=== PATIENT | male | born 1990 | race Caucasian/White ===

== ENCOUNTER 2017-10-20 23:34 | Emergency (ER) | payer SELFPAY ==
[~2017-10-20] VITALS: Ht 172.7 cm; Wt 72.6 kg
--- NOTE | 2017-10-21 00:10 | NUR ---
PT IN ROOM ALERT AWAKE C/O FEELING NAUSEAUS WITH 1 EPISODE OF VOMITTING GREENISH COLOR. FATHER AT BEDSIDE. AWAITING MD ORDERS AT THIS TIME.
--- NOTE | 2017-10-21 01:00 | NUR ---
PT SEEN AND EVALUATED BY MD AT THIS TIME. AWAITING ORDERS.
[2017-10-21] MEDS ORDERED: ONDANSETRON 4 MG/2 ML VIAL IV ONE (01:15)
[2017-10-21] MEDS ORDERED: HYDROMORPHONE 1 MG/1 ML DISP.SYRIN IV ONE (01:15)
[2017-10-21] MEDS ORDERED: IV NORMAL SALINE 1000 ML BAG IV ONE ×2 (01:15→03:00)
[2017-10-21] MEDS ORDERED: ONDANSETRON 4 MG/2 ML VIAL ONE (01:23)
[2017-10-21] MEDS ORDERED: HYDROMORPHONE 1 MG/1 ML DISP.SYRIN ONE (01:24)
[2017-10-21 01:26] LABS: BASOPHILS % (AUTO) 0.3 % (0.0-2.0); EOSINOPHILS % (AUTO) 0.1 % (0.0-7.0); HEMATOCRIT 37.8 % (36.7-47.1); HEMOGLOBIN 12.9 g/dL (12.5-16.3); LYMPHOCYTES # (AUTO) 2.6 K/uL (20.0-40.0); LYMPHOCYTES % (AUTO) 16.9 % (20.5-51.5); MEAN CORPUSCULAR HEMOGLOBIN 31.7 uug (23.8-33.4); MEAN CORPUSCULAR HGB CONC 34 g/dL (32.5-36.3); MONOCYTES % (AUTO) 6.8 % (0.0-11.0); NEUTROPHILS # (AUTO) 11.7 K/uL (1.8-8.9); NEUTROPHILS % (AUTO) 75.9 % (38.5-71.5); PLATELET COUNT (AUTO) 382 K/uL (152-348); RED BLOOD CELL COUNT(AUTO) 4.07 MIL/uL (4.06-5.63); WHITE BLOOD COUNT (AUTO) 15.4 K/uL (3.6-10.2)
[2017-10-21 01:35] LABS: BILIRUBIN,DIRECT 0.1 mg/dL (0.0-0.2); BILIRUBIN,TOTAL 0.4 mg/dL (0.2-1.0); CREATININE 1.1 mg/dL (0.6-1.3); POTASSIUM 2.9 mmol/L (3.5-5.1); TOTAL PROTEIN, SERUM 7.2 g/dL (6.4-8.2)
--- NOTE | 2017-10-21 01:45 | NUR ---
Patient taken to CT via gurney with transporter.
--- NOTE | 2017-10-21 02:30 | NUR ---
PT IN ROOM WITH NO ACTIVE N/V OR PAIN. WILL CONTINUE TO MONITOR.
--- NOTE | 2017-10-21 03:46 | NUR ---
Ultrasound at bedside.
[2017-10-21 03:54] LABS: *BILIRUBIN,URIN NEGATIVE (NEGATIVE); *BLOOD, URINE NEGATIVE (NEGATIVE); *CLARITY,URINE CLOUDY (CLEAR); *COLOR,URINE YELLOW (YELLOW); *KETONES,URINE 4+ (NEGATIVE); *PROTEIN,URINE NEGATIVE (NEGATIVE); *UROBILINOGEN,URINE 0.2 E.U./dl (NORMAL); LEUKOCYTE ESTERASE ,URINE NEGATIVE (NEGATIVE); NITRITE, URINE NEGATIVE (NEGATIVE); PH,URINE 8.5 (5.0-8.0); UGLUCOSE NEGATIVE (NEGATIVE)
[2017-10-21 04:07] LABS: BACTERIA,URINE NONE SEEN /HPF (NONE SEEN); RBC,URINE NONE SEEN /HPF (0-3); SQUAMOUS EPITHELIAL CELL,UR FEW /HPF (NONE SEEN); URINE AMORPHOUS PHOSPHATES MANY /HPF; WBC,URINE 0-3 /HPF (0-3)
--- NOTE | 2017-10-21 04:10 | NUR ---
MD AT BEDSIDE TALKING WITH PT AND FATHER.
--- NOTE | 2017-10-21 04:43 | NUR ---
Patient discharged to home in stable conditon. Written and verbal after care instructions given. Patient verbalizes understanding of instructions. Pt able to ambulate independently. All belongings taken with pt. Father will drive patient home.
[2017-10-21 04:46] VITALS: BP 132/76
[2017-10-23 03:35] LABS: *GC NAA Negative (Negative); *TRIC.VAG. NAA Negative (Negative)
== END 2017-10-21 04:47 | disposition home or self-care (01) ==
LOC: ER 23:39
DX: R10.9 Unspecified abdominal pain (principal); K21.9 Gastro-esophageal reflux disease without esophagitis
CPT/HCPCS: 36415; 76870; 83690; 85025; 87491; A4663; J1170; J2405; J7030